=== PATIENT | male | born 1980 | race Caucasian/White ===

== ENCOUNTER 2021-02-16 04:27 | Emergency (ER) | payer SELFPAY ==
--- NOTE | 2021-02-16 04:29 | XRR_ITS ---
PROCEDURE INFORMATION: Exam: XR Chest Exam date and time: 02/16/2021 4:29 AM Age: 40 years old Clinical indication: Cough and shortness of breath TECHNIQUE: Imaging protocol: XR of the chest. Views: 1 view. COMPARISON: No relevant prior studies available. FINDINGS: Lungs: Unremarkable. No consolidation. Pleural spaces: Unremarkable. No pleural effusion. No pneumothorax. Heart/Mediastinum: Unremarkable. No cardiomegaly. Bones/joints: Unremarkable. XR/XR chest 1V portable [id number] IMPRESSION: No acute findings.
[2021-02-16 04:35] VITALS: BP 144/88; PULSE 105; RESP 18; TEMP 36.9; O2SAT 98; BMI 31.1
--- NOTE | 2021-02-16 04:46 | W.ED.SOB ---
HPI - SOB/Dyspnea General: Chief Complaint: Shortness of Breath/Dyspnea Stated Complaint: SOB, Covid + Time Seen by Provider: 02/16/21 04:30 Source: patient Mode of arrival: ambulatory Limitations: no limitations History of Present Illness: HPI Narrative: 40-year-old male who states he been having cough congestion fevers since last Saturday he tested positive for Covid last Saturday. He states has been using an inhaler at home with minimal relief he states his cough is worsened over the last 2 days states has been coughing so much that he is having a hard time sleeping has had slight increase shortness of breath denies any worsening improving factors patient's pulse ox here is 98% on room air. No vomiting no diarrhea. Associated symptoms: Reports fever(s); Deny abdominal pain, chest pain, nausea or vomiting Review of Systems Const: Reports: fever(s), chills and body aches Eyes: Denies: blurry vision or eye discomfort ENMT: Denies: throat pain or dental pain Card: Denies: chest pain Resp: Reports: dyspnea and non-productive cough GI: Denies: abdominal pain, nausea, vomiting or diarrhea : Denies: dysuria Musc: Denies: neck pain or back pain Skin/Breast: Denies: rash Neuro: Denies: headache(s) Psych: Denies: depression Harman/Lymph: Denies: easy bruising All/Imm: Denies: urticaria Physical Exam Const: COMMON NORMALS: no acute distress, patient oriented x3 and healthy appearing HENMT: COMMON NORMALS: normocephalic and atraumatic HEAD & SCALP: normocephalic and atraumatic Eye: COMMON NORMALS: Equal, round and reactive pupils present and EOMs intact bilaterally PUPIL: Yes Equal, round and reactive pupils present Neck/C-Spine: COMMON NORMALS: full ROM and supple Chest: COMMONS NORMALS: normal inspection of the chest and normal palpation of entire chest wall Resp: COMMON NORMALS: normal respiratory effort, No retractions, No use of accessory muscles and clear to auscultation bilaterally AUSCULTATION: clear to auscultation bilaterally Cardio: COMMON NORMALS: regular rate, regular rhythm and No murmurs present (Cardio) RATE: regular rate RHYTHM: regular rhythm GI: COMMON NORMALS: Normal to inspection, nondistended, normoactive bowel sounds present, Soft to palpation, non-tender and no masses PALPATION: Yes Soft to palpation Extremity: COMMON NORMALS: normal to inspection and full ROM Neuro: COMMON NORMALS: patient oriented x3, moves all extremities and no focal motor deficits Psych: COMMON NORMALS: mental status grossly normal, Normal thought process present and cooperative THOUGHT PROCESS: Normal thought process present Skin: COMMON NORMALS: no rashes or lesions noted and no wounds GENERAL SKIN EXAM: no rashes or lesions noted Course Vital Signs: Vital signs: Vital Signs Temperature 98.4 F 02/16/21 04:35 Pulse Rate 105 H 02/16/21 04:35 Respiratory Rate 18 02/16/21 04:35 Blood Pressure 144/88 02/16/21 04:35 Pulse Oximetry 98 02/16/21 04:35 MDM - SOB/Dyspnea MDM Narrative: Medical decision making narrative: Patient presents here with cough congestion does have Covid. X-ray shows finding consistent with Covid. He has no hypoxia here no respiratory distress patient given Decadron here he is to continue to use his albuterol inhaler Tessalon Perles at home no signs of bacterial pneumonia no signs of pulmonary rhythm he stable for discharge he is to monitor his oxygen at home return if worsening he understands agrees to plan. Discharge Plan Discharge Patient Disposition: Home Clinical Impression: COVID-19 Condition: Stable Discharge Orders: Discharge ED (Routine); Ordered 02/16/21 Ordered By: Sheree Frankel Discharge Diet: Advance as tolerated Discharge Activity: Resume usual activity Patient Instructions: COVID-19 (Coronavirus Disease 2019) (ED) Coding Level of Care Code ED [facility] Exam Comprehensive
[2021-02-16 05:07] VITALS: PULSE 95; RESP 20; O2SAT 96
[2021-02-16] MEDS: ipratropium-albuterol 3 mL Neb INHALATION (05:07)
[2021-02-16] MEDS: benzonatate 100 mg Capsule PO (05:38)
[2021-02-16] MEDS: dexamethasone 10 mg/mL INJ IM (05:38)
[2021-02-16 06:03] VITALS: BP 144/88; PULSE 105; RESP 20; O2SAT 98
== END 2021-02-16 05:30 | disposition home or self-care (01) ==
PROVIDERS: Emergency Provider Emergency Medicine
DX: U07.1 COVID-19 (principal)
CPT/HCPCS: 71045; 94640; 96372; 99283; J1100